=== PATIENT | male | born 1995 | race Two or more races ===

== ENCOUNTER 2023-04-20 15:23 | Emergency (ER) | payer SELFPAY ==
[~2023-04-20] VITALS: Ht 180.3 cm; Wt 63.5 kg
[2023-04-20 15:37] VITALS: TEMP 100.1
[2023-04-20] MEDS ORDERED: IV NS 0.9% 1,000 ML IV ONE (16:00)
[2023-04-20] MEDS ORDERED: KETOROLAC TROMETHAMINE INJ 30 MG/ML VIAL IV ONE (16:00)
[2023-04-20] MEDS ORDERED: KETOROLAC TROMETHAMINE INJ 30 MG/ML VIAL ONE (16:00)
[2023-04-20 16:02] LABS: BASOPHILS % (AUTO) 0.2 % (0.0-2.0); EOSINOPHILS % (AUTO) 0.9 % (0.0-6.0); HEMATOCRIT 44 % (39-51); HEMOGLOBIN 14.8 g/dL (13.5-17.5); LYMPHOCYTES # (AUTO) 0.8 K/uL (0.8-4.8); LYMPHOCYTES % (AUTO) 16.9 % (20.0-44.0); MEAN CORPUSCULAR HEMOGLOBIN 29 PG (26.0-33.0); MEAN CORPUSCULAR HGB CONC 34 g/dl (31.0-36.0); MEAN CORPUSCULAR VOLUME 88 fL (80-96); MONOCYTES # (AUTO) 0.8 K/uL (0.1-1.30); MONOCYTES % (AUTO) 17.3 % (2.0-12.0); NEUTROPHILS % (AUTO) 64.7 % (43.0-81.0); PLATELET COUNT (AUTO) 140 K/uL (150-450); RED BLOOD CELL COUNT(AUTO) 5.05 MIL/uL (4.5-6.0); RED CELL DISTRIBUTION WIDTH 12.8 % (11.5-15.0); WHITE BLOOD COUNT (AUTO) 4.6 K/uL (4.3-11.0)
[2023-04-20 16:30] VITALS: O2SAT 98
[2023-04-20] MEDS ORDERED: IV NS 0.9% 1,000 ML BAG IV ONE (16:30)
[2023-04-20 16:35] LABS: POTASSIUM 3.8 mmol/L (3.5-5.1)
[2023-04-20] MEDS ORDERED: NAPR-1164 PO (17:24)
[2023-04-20] MEDS ORDERED: DIPH50CA4 PO (17:24)
[2023-04-20 17:40] VITALS: BP 108/62
[2023-04-20 17:56] LABS: ANISOCYTOSIS 1+; BAND % (MANUAL) 3 % (0.0-5.0); LYMPHOCYTES % (MANUAL) 21 % (16-48); MONOCYTES % (MANUAL) 14 % (0-11.0); NEUTROPHILS % (MANUAL) 61 (42-76); PLATELET ESTIMATE DECREASED; REACTIVE LYMPHOCYTES 1 % (0-0)
== END 2023-04-20 17:42 | disposition home or self-care (01) ==
LOC: ER 15:31
DX: B34.9 Viral infection, unspecified (principal); Z20.822 Contact with and (suspected) exposure to COVID-19
CPT/HCPCS: 99284; 96374; 71045; 96361; 87426; 87804 ×2; 85025; 80048; 36415; 85007; J1885; J7030; C9803

== ENCOUNTER 2023-11-22 13:45 | Emergency (ER) | payer MEDICAID, OTHER ==
[~2023-11-22] VITALS: Ht 180.3 cm; Wt 63.5 kg
[~2023-11-22 13:45] MED LIST: DIPH50CA4 PO; NAPR-1164 PO
[2023-11-22 13:56] VITALS: BP 118/67; TEMP 98.2
[2023-11-22] MEDS ORDERED: METH4TAB3 PO (14:14)
[2023-11-22] MEDS ORDERED: CETI-90 PO (14:14)
[2023-11-22] MEDS ORDERED: MUPI22OI7 TP (14:14)
[2023-11-22] MEDS ORDERED: CLIN300C12 PO (14:14)
[2023-11-22 14:23] VITALS: O2SAT 99
== END 2023-11-22 14:24 | disposition home or self-care (01) ==
LOC: ER 13:51
DX: L30.9 Dermatitis, unspecified (principal); F10.129 Alcohol abuse with intoxication, unspecified; F17.200 Nicotine dependence, unspecified, uncomplicated

== ENCOUNTER 2024-05-19 16:50 | Emergency (ER) | payer OTHER ==
[~2024-05-19] VITALS: Ht 180.3 cm; Wt 63.5 kg
[~2024-05-19 16:50] MED LIST changes: +CETI-90 PO; +CLIN300C12 PO; +METH4TAB3 PO; +MUPI22OI7 TP
[2024-05-19 17:54] VITALS: BP 131/69; TEMP 97.9; O2SAT 99
[2024-05-19] MEDS ORDERED: TDAP [DIPH/PERTUSSIS/TET] 0.5 ML VIAL IM ONE (18:22)
[2024-05-19] MEDS: TDAP [DIPH/PERTUSSIS/TET] 0.5 ML VIAL IM ONE (18:27)
== END 2024-05-19 18:28 | disposition home or self-care (01) ==
LOC: ER 16:58
DX: S80.812A Abrasion, left lower leg, initial encounter (principal); S80.811A Abrasion, right lower leg, initial encounter; F17.200 Nicotine dependence, unspecified, uncomplicated; Z23 Encounter for immunization; W22.8XXA Striking against or struck by other objects, initial encounter; Y93.89 Activity, other specified; Y92.89 Other specified places as the place of occurrence of the external cause; Y99.8 Other external cause status
CPT/HCPCS: 90715